=== PATIENT | female | born 1955 | race Caucasian/White ===

== ENCOUNTER 2018-06-20 05:41 | Inpatient (IN) | payer MEDICAID ==
[~2018-06-20] VITALS: Ht 154.9 cm; Wt 65.3 kg
[2018-06-20] MEDS ORDERED: CEFOXITIN SODIUM 2 G in DEXT 5% WATER 100 ML IV ONE (06:30)
[2018-06-20] MEDS ORDERED: SODIUM CHLORIDE 0.9% 1,000 ML IV SCH (06:30)
[2018-06-20] MEDS ORDERED: SKIN ADHESIVE 0.7 GM EA TOP ONE (06:42)
[2018-06-20] MEDS ORDERED: INDOCYANINE GREEN 25 MG VIAL IV ONE (06:42)
[2018-06-20] MEDS ORDERED: BUPIVACAINE HCL/PF 0.5% (5MG/ML) 10ML ONE (06:43)
[2018-06-20] MEDS ORDERED: LIDOCAINE HCL 1% 20ML VIAL (Pyxis) INJ ONE (06:43)
[2018-06-20] MEDS ORDERED: PROPOFOL 200MG/20ML VIAL IV ONE (07:29)
[2018-06-20] MEDS ORDERED: ROCURONIUM BROMIDE 10MG/ML VIAL 5ML IV ONE (07:29)
[2018-06-20] MEDS ORDERED: FENTANYL CITRATE/PF 50MCG/ML 2ML VIAL ONE (07:29)
[2018-06-20] MEDS ORDERED: MIDAZOLAM HCL 2 MG/2 ML VIAL ONE (07:29)
[2018-06-20] MEDS ORDERED: NEOSTIGMINE METHYLSULFATE 1MG/ML 10 ML VIAL ONE (07:29)
[2018-06-20] MEDS ORDERED: GLYCOPYRROLATE 0.2 MG/ML 2ML VIAL ONE ×2 (07:30→08:07)
[2018-06-20] MEDS ORDERED: DEXAMETHASONE 4MG/ML 1ML VIAL ONE (07:53)
[2018-06-20] MEDS ORDERED: ONDANSETRON HCL 4MG/2ML INJ ONE (07:53)
[2018-06-20] MEDS ORDERED: HYDROMORPHONE HCL/PF 2MG/ML CPJ IV PRN (08:15)
[2018-06-20] MEDS ORDERED: ONDANSETRON HCL 4MG/2ML INJ IV PRN ×2 (08:15→12:30)
[2018-06-20] MEDS ORDERED: LABETALOL HCL 20MG/4ML CARPUJECT IV PRN (08:15)
[2018-06-20] MEDS ORDERED: MEPERIDINE HCL/PF 25MG/ML CPJ IV PRN (08:15)
[2018-06-20] MEDS ORDERED: LISI-186 PO (08:30)
[2018-06-20] MEDS ORDERED: LABETALOL HCL 5MG/ML VIAL 20ML IV ONE ×2 (09:07→09:10)
[2018-06-20] MEDS ORDERED: LIDOCAINE HCL/PF 1% 10 MG/ML 5ML VIAL ONE (09:10)
[2018-06-20] MEDS ORDERED: HYDROMORPHONE HCL/PF 2MG/ML (OR) ONE (09:28)
[2018-06-20 11:50] VITALS: BP 104/97
[2018-06-20 12:00] VITALS: BP 104/67
[2018-06-20 16:00] VITALS: BP 116/64
[2018-06-20] MEDS: HYDROMORPHONE HCL/PF 2MG/ML CPJ IV PRN ×2 (16:44→22:13)
[2018-06-20] MEDS: SODIUM CHLORIDE 0.45% 1,000 ML IV SCH ×2 (16:51→22:30)
[2018-06-20 20:00] VITALS: BP 101/58
[2018-06-21] VITALS: BP 105/66
[2018-06-21 04:00] VITALS: BP 122/70
[2018-06-21 04:21] VITALS: BP 104/59
[2018-06-21] MEDS: HYDROMORPHONE HCL/PF 2MG/ML CPJ IV PRN (05:41)
[2018-06-21 08:00] VITALS: BP 104/59
== END 2018-06-21 10:45 | disposition home or self-care (01) | DRG 263 ==
LOC: OR 05:41 → 6EST 05:42
PROVIDERS: ADMIT Specialist; ATTEND Specialist
PROC: 0FT44ZZ Resection of Gallbladder, Percutaneous Endoscopic Approach (ICD-10-PCS; principal; 2018-06-20)
PROC: 8E0W4CZ Robotic Assisted Procedure of Trunk Region, Percutaneous Endoscopic Approach (ICD-10-PCS; 2018-06-20)
DX: K82.4 Cholesterolosis of gallbladder (principal); Z79.899 Other long term (current) drug therapy; Z98.51 Tubal ligation status; Z88.6 Allergy status to analgesic agent
CPT/HCPCS: 82962; 88304; J0694; J1100; J1170; J2175; J2250; J2405; J2704; J2710; J3010; J3490; J7060; Q9957

== ENCOUNTER 2018-12-04 10:46 | Emergency (ER) | payer MEDICAID ==
[~2018-12-04] VITALS: Ht 162.6 cm; Wt 65.0 kg
[~2018-12-04 10:46] MED LIST: LISI-186 PO
[2018-12-04] MEDS ORDERED: MORPHINE SULFATE 4 MG/ML CPJ (NOT FOR IM USE) IV STA (11:53)
[2018-12-04] MEDS ORDERED: ONDANSETRON HCL 4MG/2ML INJ IV STA (11:53)
[2018-12-04] MEDS ORDERED: SODIUM CHLORIDE 0.9% 1,000 ML IV ONE (11:53)
[2018-12-04 12:16] LABS: BASOPHILS % 0.5 % (0.0-2.0); EOSINOPHILS % 4.6 % (0.0-5.0); HEMATOCRIT. 41.1 % (36.0-48.0); HEMOGLOBIN. 14.2 g/dL (12.0-16.0); LYMPHOCYTES % 34.1 % (20.0-50.0); MEAN CORPUSCULAR HEMOGLOBIN 32.1 pg (28.0-32.0); MEAN CORPUSCULAR VOLUME 92.7 fL (81.0-99.0); NEUTROPHILS % 50.8 % (40.0-76.0); PLATELET 212 x1000/uL (130-400); RED BLOOD CELL COUNT 4.44 mill/uL (4.2-5.4); RED CELL DISTRIBUTION WIDTH 13.2 % (11.6-14.6)
[2018-12-04 12:20] LABS: CHLORIDE 109 mEq/L (98-107)
[2018-12-04 12:28] LABS: CLARITY URINE CLEAR (CLEAR); COLOR URINE YELLOW (YELLOW); KETONES URINE NEGATIVE (NEGATIVE); LEUKOCYTE ESTERASE URINE NEGATIVE (NEGATIVE); NITRITE URINE NEGATIVE (NEGATIVE); OCCULT BLOOD URINE NEGATIVE (NEGATIVE); PROTEIN URINE NEGATIVE (NEGATIVE); SPECIFIC GRAVITY URINE 1.024 (1.005-1.030); UROBILINOGEN URINE 0.2 E.U./dL (0.2-1.0)
[2018-12-04] MEDS ORDERED: POTASSIUM CHLORIDE 20MEQ TABLET SR PO ONE (16:30)
[2018-12-04 17:08] VITALS: BP 120/78
== END 2018-12-04 17:15 | disposition home or self-care (01) ==
LOC: ER 10:46
DX: R10.31 Right lower quadrant pain (principal); Z90.49 Acquired absence of other specified parts of digestive tract; Z88.6 Allergy status to analgesic agent
CPT/HCPCS: 36415; 71045; 74177; 80053; 81003; 83690; 85025; 93005; 99284; J7030